=== PATIENT | male | born 1980 | race Two or more races ===

== ENCOUNTER 2019-12-28 06:03 | Emergency (ER) | payer OTHER ==
[~2019-12-28] VITALS: Ht 172.7 cm; Wt 113.4 kg
[2019-12-28] MEDS ORDERED: KETOROLAC TROMETH 60MG/2ML VIAL IM ONE (07:45)
[2019-12-28 07:46] VITALS: BP 131/92
== END 2019-12-28 08:36 | disposition home or self-care (01) ==
LOC: ER 06:03
DX: S29.012A Strain of muscle and tendon of back wall of thorax, initial encounter (principal); X58.XXXA Exposure to other specified factors, initial encounter; Y93.89 Activity, other specified; Y92.89 Other specified places as the place of occurrence of the external cause; Y99.8 Other external cause status
CPT/HCPCS: 71046; 96372; 99283; J1885